=== PATIENT | female | born 1955 | race Caucasian/White ===

== ENCOUNTER → 2017-02-11 | Outpatient (CLI) | payer OTHER ==
[~2017-02-11] MED LIST: FLX10 PO; HYDR-3983 PO; LISI-461 PO; NAPR-22 PO; PRLSRUNK
--- NOTE | 2017-02-11 12:12 | DIAGNOSTIC IMAGING REPORT ---
CHEST 2 VIEWS ROUTINE HISTORY: 61 years-old Female J44.9 COPD, [id number] COMPARISON: Chest radiograph 08/19/2015 TECHNIQUE: PA and lateral views of the chest FINDINGS: Cardiomediastinal and hilar silhouettes are within normal limits. No pneumothorax, pleural effusion, focal airspace consolidation or overt pulmonary edema. Mildly increased lucency of the lungs may reflect underlying emphysema. Bones of the chest appear grossly intact. Minimal anterior endplate wedging of a midthoracic segment is unchanged. Fusion hardware of the lower cervical spine. IMPRESSION: No acute process. The above report was generated using voice recognition software. It may contain grammatical, syntax or spelling errors. Electronically signed by: Brooks Lindsay M.D. 02/11/2017 12:11 PM Dictated Date/Time: 02/11/2017 12:10 PM
== END | disposition home or self-care (01) ==
LOC: C.RAD1850 11:51
PROVIDERS: ATTEND Internal Medicine Pulmonary Disease
DX: J44.9 Chronic obstructive pulmonary disease, unspecified (principal)